=== PATIENT | male | born 1975 | race Caucasian/White ===

== ENCOUNTER 2018-04-14 17:56 | Inpatient (IN) | payer SELFPAY ==
[~2018-04-14] VITALS: Ht 188 cm; Wt 198.9 kg
[2018-04-14 18:00] VITALS: Ht 188 cm; Wt 198.9 kg
[2018-04-14 18:56] LABS: PLATELET COUNT 223 x10^3mcL (130-400); RED CELL DISTRIBUTION WIDTH 14.5 % (11.5-14.5)
[2018-04-14 18:57] LABS: BASOPHIL % 0.5 % (0-2)
[2018-04-14 19:02] LABS: CALCIUM 8.7 mg/dL (8.5-10.1); CARBON DIOXIDE 28.4 mmol/L (21-32); CHLORIDE SERUM 104 mmol/L (98-107); CREATININE SERUM 0.9 mg/dL (0.7-1.3); GFR1 > 60 mL/min; GLUCOSE SERUM 125 mg/dL (74-106); POTASSIUM SERUM 3.6 mmol/L (3.5-5.1); SODIUM SERUM 139 mmol/L (136-145)
[2018-04-14 19:08] LABS: ALBUMIN 3.6 g/dL (3.4-5.0); ALKALINE PHOSPHATASE 80 U/L (46-116); ALT/SGPT 301 U/L (16-63); AST/SGOT 278 U/L (15-37); BILIRUBIN TOTAL 0.5 mg/dL (0.20-1.00)
[2018-04-14 19:10] LABS: TOTAL PROTEIN, SERUM 8.3 g/dL (6.4-8.2)
[2018-04-14 22:05] LABS: MAGNESIUM 2.1 mg/dL (1.8-2.4)
[2018-04-14 22:06] LABS: CHOLESTEROL/HDL RATIO 2.1
[2018-04-14 22:12] LABS: T4(THYROXINE) 4.9 ug/dL (4.7-13.3)
[2018-04-14 23:17] VITALS: BP 155/96
[2018-04-15 05:36] VITALS: BP 134/85
[2018-04-15 06:20] LABS: CALCIUM 8.3 mg/dL (8.5-10.1); CARBON DIOXIDE 29.4 mmol/L (21-32); CHLORIDE SERUM 104 mmol/L (98-107); GFR1 > 60 mL/min; GLUCOSE SERUM 107 mg/dL (74-106); MAGNESIUM 2.3 mg/dL (1.8-2.4); PHOSPHOROUS 4.2 mg/dL (2.5-4.9); POTASSIUM SERUM 3.6 mmol/L (3.5-5.1); SODIUM SERUM 142 mmol/L (136-145)
[2018-04-15 06:41] LABS: BASOPHIL % 0.4 % (0-2); PLATELET COUNT 230 x10^3mcL (130-400)
[2018-04-15 07:16] LABS: RED CELL DISTRIBUTION WIDTH 14.6 % (11.5-14.5)
[2018-04-15 07:16] LABS: UA SPECIFIC GRAVITY 1.025 (1.005-1.035); microscopic required? YES; urine erythrocyte NEGATIVE (NEGATIVE)
[2018-04-15 07:32] LABS: AMPHETAMINE QUAL UR NONE DETECTED (See below)
[2018-04-15 07:56] VITALS: BP 126/72
[2018-04-15] MEDS ORDERED: ZES10 PO (10:45)
[2018-04-15 12:04] VITALS: BP 141/93
[2018-04-15 14:50] VITALS: BP 141/93
== END 2018-04-15 15:52 | disposition home or self-care (01) | DRG 206 ==
LOC: ED 17:56 → DU 21:26
PROVIDERS: Emergency Medicine; ADMIT Family Medicine
DX: M94.0 Chondrocostal junction syndrome [Tietze] (principal); Z68.43 Body mass index [BMI] 50.0-59.9, adult; M62.82 Rhabdomyolysis; I16.0 Hypertensive urgency; F41.9 Anxiety disorder, unspecified; E66.01 Morbid (severe) obesity due to excess calories; F10.10 Alcohol abuse, uncomplicated; K70.30 Alcoholic cirrhosis of liver without ascites; Z71.3 Dietary counseling and surveillance; Z83.3 Family history of diabetes mellitus
CPT/HCPCS: 82962; 83880; G0480; J2270; J2405; J3490; J7030; Q0092